=== PATIENT | female | born 1995 ===

== ENCOUNTER 2019-05-14 05:20 | Inpatient (IN) | payer MEDICAID ==
[2019-05-14] MEDS: LACTATED RINGERS 1,000 ML IV SCH ×2 (05:45→07:09)
[2019-05-14] MEDS ORDERED: FAMOTIDINE 20 MG/2 ML INJ IV ONE (06:03)
[2019-05-14] MEDS ORDERED: METOCLOPRAMIDE 10 MG/2 ML INJ IV ONE (06:03)
[2019-05-14] MEDS ORDERED: BICITRA ORAL LIQD 30ML PO ONE (06:03)
[2019-05-14 06:45] LABS: Basophils % (Auto) 0.5 % (0.0-1.8); Eosinophils # (Auto) 0.1 K/mm3 (0.0-0.4); Eosinophils % (Auto) 0.7 % (0.0-4.3); Hematocrit 39.7 % (30.3-42.9); Hemoglobin 13.7 gm/dl (10.1-14.3); Lymphocytes # (Auto) 2.6 K/mm3 (1.2-5.4); Lymphocytes % (Auto) 29.5 % (13.4-35.0); Mean Corpuscular HGB Conc 34 % (30-34); Mean Corpuscular Volume 92 fl (79-97); Monocytes # (Auto) 0.4 K/mm3 (0.0-0.8); Monocytes % (Auto) 4.5 % (0.0-7.3); Platelet Count 120 K/mm3 (140-440); Red Blood Count 4.32 M/mm3 (3.65-5.03); Red Cell Distribution Width 12.5 % (13.2-15.2)
[2019-05-14] MEDS ORDERED: OXYTOCIN 20 UNIT/1000ML DRIP 20 UNITS/1,000 ML BAG IV SCH ×2 (07:00→10:00)
[2019-05-14] MEDS ORDERED: ceFAZolin/Water 2 GM/20 ML 2 GM/20 ML SYRINGE IV NR (07:00)
--- NOTE | 2019-05-14 07:30 | Anesthesia Consultation ---
Anesthesia Consult and Med Hx Date of service: 05/14/19 - Airway Anesthetic Teeth Evaluation: Good ROM Head & Neck: Adequate Mental/Hyoid Distance: Adequate Mallampati Class: Class II Intubation Access Assessment: Probably Good - Pulmonary Exam CTA: Yes - Cardiac Exam Cardiac Exam: RRR - Pre-Operative Health Status ASA Pre-Surgery Classification: ASA2 Proposed Anesthetic Plan: Spinal - Pulmonary Hx Asthma: No COPD: No - Cardiovascular System Hx Hypertension: No Hx Heart Attack/AMI: No Hx Valvular Heart Disease: No - Central Nervous System Hx Seizures: No CVA: No Hx Psychiatric Problems: No - Endocrine Hx Renal Disease: No Hx Liver Disease: No Hx Hypothyroidism: No Hx Hyperthyroidism: No - Hematic Hx Anemia: No Hx Sickle Cell Disease: No - Other Systems Hx Alcohol Use: No Hx Substance Use: No Hx Cancer: No Hx Obesity: Yes
--- NOTE | 2019-05-14 07:31 | Anesthesia Day of Surgery ---
Anesthesia Day of Surgery - Day of Surgery Patient Examined: Yes Patient H&P Reviewed: Yes Patient is NPO: Yes
--- NOTE | 2019-05-14 07:34 | History and Physical Report ---
History of Present Illness Date of examination: 05/14/19 Date of admission: 05/14/19 05:20 Chief complaint: Repeat C Section History of present illness: Pt is a 23yo HF EDC 05/19/19; EGA 39 2/7 weeks presents for a Repeat C Section. She received care at [facility] since 13 weeks and co-managed by [facility] for previous PTD and C Section x 2. records are available and GBS is Negative. Past History Past Medical History: no pertinent history Past Surgical History: section (x2) Family/Genetic History: none Social history: no significant social history, - Obstetrical History Expected Date of Delivery: 05/19/19 Actual Gestation: 39 Week(s) 2 Day(s) : 4 Medications and Allergies Allergies Allergy/AdvReac Type Severity Reaction Status Date / Time No Known Allergies Allergy Verified 10/25/13 10:39 Home Medications Medication Instructions Recorded Confirmed Last Taken Type Ibuprofen [Motrin 200 MG tab] 600 mg PO Q6H PRN #30 tablet 11/12/14 Unknown Rx Multivitamin/Iron/Folic Acid 1 each PO DAILY #30 tablet 11/12/14 Unknown Rx [Multi-Day Plus Iron Tablet] oxyCODONE /ACETAMINOPHEN [Percocet 1 tab PO Q6HR PRN #30 tablet 11/12/14 Unknown Rx 5/325] Active Meds: Active Medications Oxytocin/Sodium Chloride (Pitocin/Ns 20 Unit/1000ml Drip) 20 units in 1,000 mls @ 0 mls/hr IV TITR CASIE Lactated Ringer's (Lactated Ringers) 1,000 mls @ 2,250 mls/hr IV PREOP CASIE Stop: 05/15/19 07:27 Last Admin: 05/14/19 07:09 Dose: 1,000 mls/hr Documented by: Cefazolin Sodium (Ancef/Sterile Water 2 Gm/20 Ml) 2 gm in 20 mls @ 80 mls/hr IV PREOP NR; Protocol Stop: 05/14/19 23:45 Review of Systems All systems: negative - Vital Signs Vital signs: Vital Signs Temp Pulse Resp BP 98.2 F 57 L 15 113/64 05/14/19 06:47 05/14/19 06:47 05/14/19 06:47 05/14/19 06:47 Temp Pulse Resp BP Pulse Ox 98.2 F 57 L 15 113/64 05/14/19 06:47 05/14/19 06:48 05/14/19 06:47 05/14/19 06:48 - Physical Exam Breasts: Positive: deferred Cardiovascular: Regular rate Lungs: Positive: Clear to auscultation Abdomen: Positive: normal appearance Genitourinary (Female): Positive: normal external genitalia Vagina: Positive: normal moisture Uterus: Positive: enlarged Extremities: Positive: normal - Obstetrical FHR: category 1 Uterine Contraction Monitor Mode: External Results Result Diagrams: 05/14/19 06:05 Abnormal lab results 05/14/19 Range/Units 06:05 RDW 12.5 L (13.2-15.2) % Plt Count 120 L (140-440) K/mm3 All other labs normal. Assessment and Plan - Patient Problems (1) 39 weeks gestation of Onset Date: 05/14/19 Current Visit: No Status: Acute Plan to address problem: A: IUP @ 39 2/7 weeks Previous C Section x 2 P: Admit to L&D for Repeat C Section (2) History of classical section Onset Date: 05/14/19 Current Visit: No Status: Acute
[2019-05-14] MEDS ORDERED: BUPIVACAINE/PF (0.5%) 5 MG/1 ML 30 ML VIAL INFILTRATI ONE (08:17)
[2019-05-14] MEDS ORDERED: PHENYLEPHRINE/NS 1,000 MCG/10 ML SYRINGE (OR USE) IV ONE (08:18)
[2019-05-14] MEDS ORDERED: DEXMEDETOMIDINE 200 MCG/2 ML VIAL IV ONE (08:18)
[2019-05-14] MEDS ORDERED: ONDANSETRON 4 MG/2 ML INJ ONE (08:18)
[2019-05-14] MEDS ORDERED: OXYTOCIN 10 UNIT/1 ML INJ ONE (08:18)
[2019-05-14] MEDS ORDERED: WATER FOR IRRIG STERILE 1,500 ML BOTTLE IR ONE (08:25)
[2019-05-14] MEDS ORDERED: SODIUM CHLORIDE 0.9% IRR 1,500 ML BOTTLE IR ONE (08:25)
[2019-05-14] MEDS ORDERED: LACTATED RINGERS 1,000 ML ONE (08:51)
--- NOTE | 2019-05-14 09:11 | Operative Report ---
Operative Report Operative Report: Date of procedure: 05/14/2019 Pre-operative diagnosis: 1. Intrauterine at 39 2/7 weeks 2. Previ ous C Section x 2 Post-operative diagnosis: Same Procedure name(s): Repeat low transverse section Surgeon: Gonzalez Boyle MD Firer Portable Boiler: None Anesthesia: Spinal anesthesia by Neno Perez CRNA EBL: 300 mL's Findings: A 3108 gm female Apgars 8 at 1 minute and 9 at 5 minutes. Clear amniotic fluid. Normal uterus with very thin lower uterine segment with normal tubes and ovaries bilaterally. Procedure: After the patient was prepped and draped in usual sterile fashion, and after a satisfactory level of spinal anesthesia was obtained, the skin knife was used to make a transverse skin incision through the previous skin scars. The incision was excised down to layer of the fascia, which was nicked in the midline and extended laterally using the Bovie cautery. The rectus muscles were dissected off the rectus fascia both superiorly and inferiorly. The rectus bellies in the midline, and the peritoneum was entered under direct visualization. The peritoneal incision was extended superiorly and inferiorly. The uterus was very thin in the lower uterine segment, scored in a curvilinear linear fashion, entered in the midline revealing clear amniotic fluid. The infant's head was delivered onto the surgical field, and the oropharynx and nasopharynx were bulb suctioned. The rest of the infant's body was delivered, cord was doubly clamped and cut and the infant was handed to the waiting respiratory team. Cord blood was then obtained. The placenta was manually removed from the uterus and the uterus removed from its normal anatomical position. After gentle uterine lavage, the incision was inspected and found to be without extensions. It was then closed in 2 layers using 0 Vicryl suture in a running interlocking fashion, the second layer imbricating the first. After good hemostasis was achieved, copious amounts or irrigation was performed, and the gutters were suctioned free of blood and blood clots. The Tisseal sealant was sprayed across the uterine incision and excellent hemostasis was assured. The uterus was then returned to its normal anatomical position, and after excellent hemostasis assured, the peritoneum was re-approximated using 3-0 Vicryl suture in a running interlocking fashion, and then the rectus muscles were re-approximated using 3-0 Vicryl suture in a [id number] configuration. The fascia was then re-approximated using 0 Vicryl suture in running interlocking fashion. The subcutaneous layer was made hemostatic using Bovie cautery and re-approximated using 3-0 vicyl suture, then the skin edges re-appro ximated using 4-0 Vicryl suture in a sub-cuticular fashion. Patient tolerated the procedure well was transported to recovery in stable condition.
[2019-05-14] MEDS ORDERED: ONDANSETRON 4 MG/2 ML INJ IV PRN ×2 (09:20→10:00)
--- NOTE | 2019-05-14 09:20 | Post Anesthesia Evaluation ---
- Post Anesthesia Evaluation Patient Participated: Yes Airway Patent: Yes Stable Respiratory Function: Yes Nausea/Vomiting: No Temp > 96.8F: Yes Pain Manageable: Yes Adequeate Hydration: Yes Anesthesia Complications: No Block Receding Appropriately: Yes
[2019-05-14] MEDS ORDERED: NalbUPHINE 10 MG/1 ML INJ IV PRN (09:30)
[2019-05-14] MEDS ORDERED: KETOROLAC 30 MG/1 ML INJ IV PRN (10:00)
[2019-05-14] MEDS ORDERED: D5W/LACTATED RINGERS 1,000 ML IV SCH (10:00)
[2019-05-14] MEDS ORDERED: oxyCODONE /ACETAMINOPHEN 5-325MG TAB PO PRN (10:00)
[2019-05-14] MEDS ORDERED: WITCH HAZEL/ GLYCERIN PAD TP PRN (10:00)
[2019-05-14] MEDS ORDERED: LANOLIN/ZINC/DIMETHICONE (LANSINOH) 7 GM TP PRN (10:00)
[2019-05-14] MEDS ORDERED: ACETAMINOPHEN 500 MG TAB PO SCH (10:00)
[2019-05-14] MEDS ORDERED: NALOXONE 0.4 MG/1 ML INJ IV PRN (10:00)
[2019-05-14] MEDS ORDERED: IBUPROFEN 800 MG TAB PO PRN (10:00)
[2019-05-14] MEDS ORDERED: IBUPROFEN 800 MG TAB PO SCH (10:00)
[2019-05-14] MEDS ORDERED: HYDROcodone/ACETAMINOPHEN 5-325 MG TAB PO PRN (10:00)
[2019-05-14] MEDS ORDERED: PROMETHAZINE 25 MG TAB PO PRN (10:30)
[2019-05-14] MEDS ORDERED: SIMETHICONE 80 MG CHEW TAB PO PRN (10:30)
[2019-05-14] MEDS ORDERED: PROMETHAZINE 25 MG RECT SUPP PR PRN (10:30)
[2019-05-14] MEDS: ACETAMINOPHEN 325 MG TAB PO SCH ×3 (17:02→23:04)
[2019-05-14] MEDS: ceFAZolin/NS 1 GM/50 ML 1 GM/50 ML BAG IV SCH (17:02)
[2019-05-14] MEDS: PRENATAL VIT27-FE FUMARATE-FOLIC ACID VIT TAB PO SCH (18:15)
[2019-05-14] MEDS: FERROUS SULFATE 325 MG TAB PO SCH (18:20)
[2019-05-14 21:40] LABS: Hematocrit 36.4 % (30.3-42.9); Hemoglobin 12.7 gm/dl (10.1-14.3)
[2019-05-14] MEDS ORDERED: SENNOSIDES 8.6 MG TAB PO PRN (22:00)
[2019-05-14] MEDS ORDERED: MAGNESIUM HYDROXIDE (MOM) ORAL LIQD UDC PO PRN (22:00)
[2019-05-15] MEDS: ceFAZolin/NS 1 GM/50 ML 1 GM/50 ML BAG IV SCH (00:21)
[2019-05-15] MEDS: ACETAMINOPHEN 325 MG TAB PO SCH ×4 (05:24→22:11)
[2019-05-15] MEDS ORDERED: TETANUS,DIPH,PERTUSS(ACELL) VACCINE 0.5 ML SYRINGE IM ONE (06:00)
--- NOTE | 2019-05-15 08:17 | Progress Note ---
Assessment and Plan - Patient Problems (1) 39 weeks gestation of Onset Date: 05/14/19 Current Visit: No Status: Resolved (2) History of classical section Onset Date: 05/14/19 Current Visit: No Status: Chronic (3) S/P Onset Date: 05/15/19 Current Visit: No Status: Resolved Plan to address problem: A: S/P Repeat C Section - POD #1 Doing well P: Continue RPOC Anticipate discharge in 24-48hrs Subjective - Subjective Date of service: 05/15/19 Principal diagnosis: s/p Repeat C Section - POD #1 Interval history: Pt is feeling well without complaints. Bleeding improved. Patient reports: appetite normal, voiding normally, pain well controlled, flatu s, ambulating normally, no dizzy ambulation, no nauseated [place]: doing well, nursing well, bottle feeding Objective - Vital Signs Latest vital signs: Vital Signs Temp Pulse Resp BP BP Pulse Ox 05/15/19 05:22 98.4 F 63 20 111/58 97 05/15/19 01:14 98.3 F 57 L 20 116/57 96 05/14/19 21:29 99.3 F 53 L 20 99/53 97 05/14/19 16:29 97.7 F 46 L 18 107/52 05/14/19 10:45 97.7 F 45 L 18 131/66 98 05/14/19 10:15 98.2 F 64 16 126/69 98 05/14/19 10:00 50 L 18 108/58 98 05/14/19 09:45 50 L 16 98/52 98 05/14/19 09:30 58 L 18 96/40 98 05/14/19 09:15 62 15 96/44 98 05/14/19 09:11 98.2 F 60 16 94/40 97 Intake and Output 05/14/19 05/15/19 05/15/19 22:59 06:59 14:59 Intake Total 770 360 Output Total 900 400 Balance -130 -40 Intake: IV 50 ANCEF/NS 1 GM/50 ML 1 gm 50 In 50 ml @ 100 mls/hr IV Q8H [facility] Rx#:[id number] Oral 480 Intake, Free Water 240 360 Output: Urine 900 400 Indwelling Catheter 900 Void 400 Other: Total, Intake Amount 480 Total, Output Amount 900 200 - Exam Breasts: Present: deferred Abdomen: Present: normal appearance, soft Uterus: Present: normal, firm, fundal height below umbilicus Extremities: Present: normal Incision: Present: normal, dry, intact, dressed - Labs Labs: Laboratory Tests 05/14/19 05/14/19 05/14/19 06:05 06:05 21:08 WBC 8.7 RBC 4.32 Hgb 13.7 12.7 Hct 39.7 36.4 MCV 92 MCH 32 MCHC 34 RDW 12.5 L Plt Count 120 L Lymph % (Auto) 29.5 [place] % (Auto) 4.5 Eos % (Auto) 0.7 Baso % (Auto) 0.5 Lymph # 2.6 [place] # 0.4 Eos # 0.1 Baso # 0.0 Seg Neutrophils % 64.8 Seg Neutrophils # 5.6 Blood Type O POSITIVE Antibody Screen Negative
[2019-05-15] MEDS: FERROUS SULFATE 325 MG TAB PO SCH (10:22)
[2019-05-15] MEDS: PRENATAL VIT27-FE FUMARATE-FOLIC ACID VIT TAB PO SCH (10:22)
[2019-05-15] MEDS ORDERED: MEASLES, MUMPS & RUBELLA 12,500 UNIT/0.5 ML VACCINE SUB-Q ONE (11:00)
[2019-05-16] MEDS: ACETAMINOPHEN 325 MG TAB PO SCH (04:06)
[2019-05-16] MEDS ORDERED: ACETAMINOPHEN 325 MG TAB PO PRN (09:00)
[2019-05-16] MEDS: FERROUS SULFATE 325 MG TAB PO SCH (10:09)
[2019-05-16] MEDS: PRENATAL VIT27-FE FUMARATE-FOLIC ACID VIT TAB PO SCH (10:09)
--- NOTE | 2019-05-16 10:16 | Progress Note ---
Assessment and Plan - Patient Problems (1) 39 weeks gestation of Onset Date: 05/14/19 Current Visit: Yes Status: Resolved (2) History of classical section Onset Date: 05/14/19 Current Visit: No Status: Chronic (3) S/P Onset Date: 05/15/19 Current Visit: Yes Status: Resolved Plan to address problem: A: S/P Repeat C Section - POD #2 Doing well P: May go home today. Subjective - Subjective Date of service: 05/16/19 Principal diagnosis: s/p Repeat C Section - POD #2 Interval history: Pt is feeling well without complaints. She is ambulating and voiding without difficulty, tolerating a reg diet without nausea or vomiting, and wants to go home today. Patient reports: appetite normal, voiding normally, pain well controlled, flatus, ambulating normally, no dizzy ambulation, no nauseated : doing well, nursing well, bottle feeding Objective - Vital Signs Latest vital signs: Vital Signs Temp Pulse Resp BP 05/16/19 08:20 97.8 F 52 L 18 101/40 05/16/19 00:00 98.6 F 72 18 113/64 05/15/19 22:14 18 05/15/19 22:11 18 05/15/19 16:35 98.3 F 75 18 121/78 Intake and Output 05/15/19 05/16/19 05/16/19 22:59 06:59 14:59 Intake Total 480 120 Balance 480 120 Intake: Oral 480 120 Other: Total, Intake Amount 480 120 # Voids Void 1 1 - Exam Breasts: Present: deferred Cardiovascular: Present: Regular rate Abdomen: Present: normal appearance, soft Uterus: Present: normal, firm, fundal height below umbilicus Extremities: Present: normal Incision: Present: normal, dry, intact
--- NOTE | 2019-05-16 10:32 | Discharge Summary ---
Providers - Providers Date of Admission: 05/14/19 05:20 Date of discharge: 05/16/19 Attending physician: DEMETRIS YEAGER Primary care physician: DEMETRIS YEAGER Hospitalization Reason for admission: section, IUP at term Delivery: Procedure: section, repeat low transverse Episiotomy: none Laceration: none Incision: normal, dry, intact Other procedures: none complications: none Discharge diagnosis: IUP at term delivered [place] baby: female Hospital course: Pt is a 23yo HF EDC 05/19/19; EGA 39 2/7 weeks who presented for a Repeat C Section. She received care at [facility] since 13 weeks and co-managed by [facility] for previous PTD and C Section x 2. She underwent an uncomplicated Repeat C Section and tolerated the procedure well. By POD #2 she was tolerating a reg diet without nausea or vomiting, ambulating and voiding without difficulty. She was therefore discharged to home on POD #2 in stable condition. Condition at discharge: Good Disposition: DC-01 TO HOME OR SELFCARE - Discharge Diagnoses (1) 39 weeks gestation of Status: Resolved (2) History of classical section Status: Chronic (3) S/P Status: Resolved Plan - Discharge Medications Prescriptions: Ferrous Sulfate [Feosol 325 MG tab] 325 mg PO QDAY #30 tablet Ibuprofen [Motrin 800 MG tab] 800 mg PO Q6H PRN #30 tablet PRN Reason: Pain, Mild (1-3) HYDROcodone/APAP 5-325 [Almond 5-325 mg TAB] 1 each PO Q6HR PRN #30 tablet PRN Reason: Pain, Moderate (4-6) Vit-Fe Fumar-FA [ Vitamin] 1 each PO QDAY #30 tablet - Provider Discharge Summary Activity: routine, no sex for 6 weeks, no heavy lifting 4 weeks, no strenuous exercise Diet: routine Instructions: routine Additional instructions: [] Smoking cessation referral if applicable(refer to patient education folder for contact #) [] Refer to [facility] Booklet Call your doctor immediately for: * Fever > 100.5 * Heavy vaginal bleeding ( >1 pad per hour) * Severe persistent headache * Shortness of breath * Reddened, hot, painful area to leg or breast * Drainage or odor from incision. * Keep incision clean and dry at all times and follow doctor's instructions regarding bathing/showering - Follow up plan Follow up: DEMETRIS YEAGER MD [Primary Care Provider] - 14 Days VITALIY BURCH CNM [Advanced Practice Nurse] - 14 Days
[2019-05-16 13:28] VITALS: BP 115/62
== END 2019-05-16 14:07 | disposition home or self-care (01) | DRG 766 ==
LOC: APU 05:20 → OB 10:46
PROVIDERS: ADMIT Obstetrics & Gynecology; ATTEND Obstetrics & Gynecology
PROC: 10D00Z1 Extraction of Products of Conception, Low, Open Approach (ICD-10-PCS; principal; 2019-05-14)
PROC: 3E0234Z Introduction of Serum, Toxoid and Vaccine into Muscle, Percutaneous Approach (ICD-10-PCS; 2019-05-15)
PROC: 3E0134Z Introduction of Serum, Toxoid and Vaccine into Subcutaneous Tissue, Percutaneous Approach (ICD-10-PCS; 2019-05-15)
DX: O34.211 Maternal care for low transverse scar from previous cesarean delivery (principal); Z3A.39 39 weeks gestation of pregnancy; Z37.0 Single live birth; Z23 Encounter for immunization
CPT/HCPCS: 36415; 85014; 85018; 85025; 86850; 86900; 86901; 90471; 90715; G0378; C9250; J0690; J1885; J2370; J2405; J2590; J2765; J3490; J7120; J7121